=== PATIENT | female | born 1975 | race African-American/Black ===

== ENCOUNTER 2024-10-26 10:21 | Emergency (ER) | payer OTHER ==
[~2024-10-26] VITALS: Ht 165.1 cm; Wt 115.2 kg
[2024-10-26 10:27] VITALS: PULSE 87; RESP 18; TEMP 98; O2SAT 100
[2024-10-26] MEDS ORDERED: ADDERALL 20 MG20 MG PO (10:54)
[2024-10-26] MEDS ORDERED: ADDERALL 20 MG20 MG (10:57)
== END 2024-10-26 11:04 | disposition home or self-care (01) ==
LOC: FSED 10:27
DX: Z76.0 Encounter for issue of repeat prescription (principal); F43.10 Post-traumatic stress disorder, unspecified; F90.9 Attention-deficit hyperactivity disorder, unspecified type
CPT/HCPCS: 99284